=== PATIENT | male | born 1995 | race African-American/Black ===

== ENCOUNTER 2017-08-04 07:35 | Emergency (ER) | payer OTHER ==
[2017-08-04] MEDS: KETOROLAC 60 MG/2 ML VIAL (J1885) IM (08:50)
== END 2017-08-04 09:03 | disposition home or self-care (01) ==
LOC: M ED 07:35
DX: S39.012A Strain of muscle, fascia and tendon of lower back, initial encounter (principal); X50.1XXA Overexertion from prolonged static or awkward postures, initial encounter; Y92.9 Unspecified place or not applicable; Y93.89 Activity, other specified; Y99.1 Military activity; G44.209 Tension-type headache, unspecified, not intractable; G47.33 Obstructive sleep apnea (adult) (pediatric); Z79.899 Other long term (current) drug therapy; Z91.89 Other specified personal risk factors, not elsewhere classified
CPT/HCPCS: J1885

== ENCOUNTER 2017-08-08 13:42 | Emergency (ER) | payer OTHER | END 2017-08-08 17:00 | disposition home or self-care (01) | LOC: M ED 13:42 | DX: M54.6 Pain in thoracic spine (principal); R51 Headache; G47.30 Sleep apnea, unspecified; J30.2 Other seasonal allergic rhinitis; M19.90 Unspecified osteoarthritis, unspecified site; G57.92 Unspecified mononeuropathy of left lower limb; Z79.899 Other long term (current) drug therapy; Z91.89 Other specified personal risk factors, not elsewhere classified | CPT/HCPCS: 99283 ==